=== PATIENT | male | born 1990 | race Caucasian/White ===

== ENCOUNTER → 2018-11-18 | Outpatient (CLI) | payer OTHER ==
--- NOTE | 2018-11-18 14:15 | XR ---
Cervical spine HISTORY: Trauma and pain 5 views of the cervical spine There is no evident foraminal encroachment. Cervical vertebral bodies show preserved height, alignmen t, and bone mineralization. Disc spaces and prevertebral soft tissues are normal. IMPRESSION: No acute fracture or subluxation.
== END | disposition home or self-care (01) ==
LOC: RADXRMAIN 09:19
PROVIDERS: ATTEND Nurse Practitioner Adult Health
DX: M54.2 Cervicalgia (principal)
CPT/HCPCS: 72050

== ENCOUNTER 2021-09-08 20:07 | Observation (INO) | payer OTHER ==
[2021-09-08] MEDS ORDERED: SODIUM CHLORIDE 0.9% 1,000 ML IV STA (20:12)
--- NOTE | 2021-09-08 20:33 | ED ---
General Adult HPI - General Chief complaint: Syncope Stated complaint: Syncope Time Seen by Provider: 09/08/21 20:12 Source: patient, EMS, RN notes reviewed, old records reviewed Mode of arrival: EMS - History of Present Illness Initial comments: 31-year-old male presents with paramedics with 3 episodes of loss consciousness, syncopal episodes. Patient was noted by paramedics to have bradycardic episode with heart rate of 15. This did result in a witnessed syncopal episode. He had 2 prior episodes to this event. He denies any current heart conditions or medications. Denies drugs or alcohol. He states he's had a diarrheal illness for the past 24 hours. He did have one episode of vomiting. The patient also had fallen striking the left side of his head. - Related Data Home Medications Medication Instructions Recorded Confirmed No Known Home Medications 09/08/21 09/08/21 Allergies Allergy/AdvReac Type Severity Reaction Status Date / Time ibuprofen [From Motrin] AdvReac Anaphylaxis Verified 09/08/21 21:32 NSAIDS (Non-Steroidal AdvReac Anaphylaxis Verified 09/08/21 21:32 Anti-Inflamma Review of Systems ROS Statement: Those systems with pertinent positive or pertinent negative responses have been documented in the HPI. ROS Other: All systems not noted in ROS Statement are negative. Past Medical History Past Medical History: Asthma History of Any Multi-Drug Resistant Organisms: None Reported Smoking Status: Never smoker Past Alcohol Use History: None Reported Past Drug Use History: None Reported General Exam General appearance: alert, in no apparent distress Head exam: Present: other (Left temporal abrasion) ENT exam: Present: normal exam Neck exam: Present: normal inspection. Absent: tenderness, meningismus Respiratory exam: Present: normal lung sounds bilaterally. Absent: respiratory distress, wheezes Cardiovascular Exam: Present: regular rate, normal rhythm GI/Abdominal exam: Present: soft. Absent: distended, tenderness Extremities exam: Present: normal inspection, normal capillary refill. Absent: pedal edema, joint swelling Neurological exam: Present: alert, oriented X3, CN II-XII intact. Absent: motor sensory deficit Psychiatric exam: Present: normal affect, normal mood Skin exam: Present: warm, dry, intact. Absent: cyanosis, diaphoretic Course Vital Signs 09/08/21 20:08 Temperature 98.8 F Pulse Rate 82 Respiratory 18 Rate Blood Pressure 132/87 O2 Sat by Pulse 98 Oximetry EKG Findings - EKG Comments: EKG Findings:: Initial EKG, 2013, sinus rhythm with a rate of 91, OR interval 167, QRS duration 102, QTC 43, no ST segment elevation. Repeat EKG at 2023, sinus bradycardia with sinus arrhythmia, rate of [address] segment elevation, OR interval 155, QRS duration 101, QTC 390. Medical Decision Making - Medical Decision Making 31-year-old male who resents with syncopal episode and bradycardia. Paramedics had visualized the patient with a bradycardic episode to 15. He was hypotensive and diaphoretic. He had 3 total episodes of syncope prior to arrival. He is sinus rhythm. He has an episode of bradycardia this is sinus bradycardia in the 50s he becomes minimally symptomatic at that time. Laboratory testing is essentially unremarkable. I performed a head CT for head trauma and this was negative. Chest x-ray negative for acute cardiopulmonary disease. X-ray of the right hand negative for traumatic injury. Patient will be observed on telemetry with cardiology on consultation. For syncopal episode with profound bradycardia. He is admitted to Dr. Kimble who is able to evaluate the patient emergency department. - Lab Data Result diagrams: 09/08/21 20:30 09/08/21 20:30 Lab Results 09/08/21 09/08/21 09/08/21 Range/Units 20:30 20:30 20:30 WBC 11.3 H (3.8-10.6) k/uL RBC 5.53 (4.30-5.90) m/uL Hgb 17.0 (13.0-17.5) gm/dL Hct 50.7 (39.0-53.0) % MCV 91.6 (80.0-100.0) fL MCH 30.7 (25.0-35.0) pg MCHC 33.5 (31.0-37.0) g/dL RDW 12.8 (11.5-15.5) % Plt Count 220 (150-450) k/uL MPV 8.0 Neutrophils % 90 % Lymphocytes % 5 % Monocytes % 4 % Eosinophils % 1 % Basophils % 0 % Neutrophils # 10.1 H (1.3-7.7) k/uL Lymphocytes # 0.5 L (1.0-4.8) k/uL Monocytes # 0.4 (0-1.0) k/uL Eosinophils # 0.1 (0-0.7) k/uL Basophils # 0.0 (0-0.2) k/uL PT 10.9 (9.0-12.0) sec INR 1.0 (<1.2) APTT 24.0 (22.0-30.0) sec Sodium 137 (137-145) mmol/L Potassium 4.4 (3.5-5.1) mmol/L Chloride 103 (98-107) mmol/L Carbon Dioxide 27 (22-30) mmol/L Anion Gap 7 mmol/L BUN 8 L (9-20) mg/dL Creatinine 1.06 (0.66-1.25) mg/dL Est GFR (CKD-EPI)AfAm >90 (>60 ml/min/1.73 sqM) Est GFR (CKD-EPI)NonAf >90 (>60 ml/min/1.73 sqM) Glucose 119 H (74-99) mg/dL Calcium 8.6 (8.4-10.2) mg/dL Magnesium 1.9 (1.6-2.3) mg/dL Total Bilirubin 1.4 H (0.2-1.3) mg/dL AST 28 (17-59) U/L ALT 35 (4-49) U/L Alkaline Phosphatase 116 (38-126) U/L Troponin I (0.000-0.034) ng/mL Total Protein 7.4 (6.3-8.2) g/dL Albumin 4.3 (3.5-5.0) g/dL 09/08/21 Range/Units 20:30 WBC (3.8-10.6) k/uL RBC (4.30-5.90) m/uL Hgb (13.0-17.5) gm/dL Hct (39.0-53.0) % MCV (80.0-100.0) fL MCH (25.0-35.0) pg MCHC (31.0-37.0) g/dL RDW (11.5-15.5) % Plt Count (150-450) k/uL MPV Neutrophils % % Lymphocytes % % Monocytes % % Eosinophils % % Basophils % % Neutrophils # (1.3-7.7) k/uL Lymphocytes # (1.0-4.8) k/uL Monocytes # (0-1.0) k/uL Eosinophils # (0-0.7) k/uL Basophils # (0-0.2) k/uL PT (9.0-12.0) sec INR (<1.2) APTT (22.0-30.0) sec Sodium (137-145) mmol/L Potassium (3.5-5.1) mmol/L Chloride (98-107) mmol/L Carbon Dioxide (22-30) mmol/L Anion Gap mmol/L BUN (9-20) mg/dL Creatinine (0.66-1.25) mg/dL Est GFR (CKD-EPI)AfAm (>60 ml/min/1.73 sqM) Est GFR (CKD-EPI)NonAf (>60 ml/min/1.73 sqM) Glucose (74-99) mg/dL Calcium (8.4-10.2) mg/dL Magnesium (1.6-2.3) mg/dL Total Bilirubin (0.2-1.3) mg/dL AST (17-59) U/L ALT (4-49) U/L Alkaline Phosphatase (38-126) U/L Troponin I <0.012 (0.000-0.034) ng/mL Total Protein (6.3-8.2) g/dL Albumin (3.5-5.0) g/dL Disposition Clinical Impression: Syncope, Bradycardia Disposition: ADMITTED IP TO THIS [facility] Condition: Stable Is patient prescribed a controlled substance at d/c from ED?: No Decision to Admit Reason: Admit from EC Decision Date: 09/08/21 Decision Time: 21:34
[2021-09-08 20:44] LABS: Basophils % (A) 0 %; Eosinophils # (A) 0.1 k/uL (0-0.7); Eosinophils % (A) 1 %; HCT 50.7 % (39.0-53.0); Lymphocytes # (A) 0.5 k/uL (1.0-4.8); Lymphocytes % (A) 5 %; MCH 30.7 pg (25.0-35.0); MCHC 33.5 g/dL (31.0-37.0); MCV 91.6 fL (80.0-100.0); Monocytes # (A) 0.4 k/uL (0-1.0); Monocytes % (A) 4 %; Neutrophils # (A) 10.1 k/uL (1.3-7.7); Neutrophils % (A) 90 %; Platelet Count 220 k/uL (150-450); RBC 5.53 m/uL (4.30-5.90); RDW 12.8 % (11.5-15.5); WBC 11.3 k/uL (3.8-10.6)
[2021-09-08 20:57] LABS: Prothrombin Time 10.9 sec (9.0-12.0)
[2021-09-08 20:58] LABS: ALT 35 U/L (4-49); AST 28 U/L (17-59); African American GFR (CKD) >90 (>60 ml/min/1.73 sqM); Albumin 4.3 g/dL (3.5-5.0); Alkaline Phosphatase 116 U/L (38-126); Anion Gap 7 mmol/L; Blood Urea Nitrogen 8 mg/dL (9-20); Calcium 8.6 mg/dL (8.4-10.2); Carbon Dioxide 27 mmol/L (22-30); Chloride 103 mmol/L (98-107); Glucose 119 mg/dL (74-99); Magnesium 1.9 mg/dL (1.6-2.3); Non-African American GFR(CKD) >90 (>60 ml/min/1.73 sqM); Potassium 4.4 mmol/L (3.5-5.1); Sodium 137 mmol/L (137-145); Total Bilirubin 1.4 mg/dL (0.2-1.3); Total Protein 7.4 g/dL (6.3-8.2)
--- NOTE | 2021-09-08 21:06 | XR ---
EXAMINATION TYPE: XR hand complete RT DATE OF EXAM: 09/08/2021 COMPARISON: NONE HISTORY: Right hand pain TECHNIQUE: 3 views FINDINGS: Metacarpals are intact. Fingers are intact. I see no fracture nor dislocation. There are no erosions. Carpal bones are intact. IMPRESSION: Negative right hand exam.
--- NOTE | 2021-09-08 21:07 | XR ---
EXAMINATION TYPE: XR chest 2V DATE OF EXAM: 09/08/2021 COMPARISON: NONE HISTORY: Syncope TECHNIQUE: 2 views FINDINGS: Heart and mediastinum are normal. Lungs are clear. Diaphragm is normal. Bony thorax appears normal. IMPRESSION: Normal chest.
[2021-09-08] MEDS ORDERED: NALOXONE 0.4 MG/ML 1 ML VIAL IV PRN (21:20)
--- NOTE | 2021-09-08 21:27 | CT ---
EXAMINATION TYPE: CT brain wo con DATE OF EXAM: 09/08/2021 COMPARISON: None HISTORY: syncope, vomiting CT DLP: 1098.4 mGycm Automated exposure control for dose reduction was used. Ventricles of normal size. There is no mass effect or midline shift. There is no evidence of intracra nial hemorrhage. There is no evidence of cerebral edema. Calvarium is intact. The skull base is intac t. IMPRESSION: Negative unenhanced head CT scan.
[2021-09-08] MEDS: HEPARIN SODIUM,PORCINE/PF 5,000 UNIT/0.5 ML SYRINGE SQ SCH (23:04)
[2021-09-08] MEDS: SODIUM CHLORIDE 0.9% 1,000 ML IV SCH (23:54)
--- NOTE | 2021-09-09 03:21 | P.HPIM ---
History of Present Illness H&P Date: 09/08/21 Chief Complaint: syncope 31 year old male with no significant past medical history patient reports GI symptoms over past few days, he admits to sick contact with similar symptoms in his brother and a coworker. he denies any fever or chills, but reports nausea and occasional vomiting, and diarrhea for the past couple days , no GI bleeding no brit, but occasional spots of blood on the toilet paper. he denies any abd pain, but had poor PO intake. today he went to the [facility] and did not feel well, while there he suddenly felt dizzy hot, and vision started tunneling next thing he knows waking up on the floor, bumped his face, denies any associated chest pain , palpitations or SOB. shortly after that he had another episode which was witnessed by his step dad, who was able to catch him and avoid injuries this time. no report of seizure like activity , EMS notified , and found him bradycardic with recurrent episodes en route. in the ED he again had short episode of bradycardia, otherwise he was doing well. blood work over all unremarkable no history of syncope, not taking any medications, denies any over the counter meds, he is trying to lose weight by calorie counting, but at least eating 2400 calories daily . he admits to depressed mood. no history of falls otherwise, and he is independent at baseline patient vaccinated against covid denies any URI symptoms . patient reports remote history of episode of what seems like a vasovagal episode , when he had out of the ordinary physical exertion at that time. however, this time he was resting doing nothing patient denies any recreational drugs Review of Systems Pertinent positives as noted in HPI. All other systems were reviewed and are negative Past Medical History Past Medical History: Asthma History of Any Multi-Drug Resistant Organisms: None Reported Smoking Status: Never smoker Past Alcohol Use History: None Reported Past Drug Use History: None Reported - Past Family History Mother Additional Family Medical History / Comment(s): Mom in june 2019 when covid first started. Pt states that they thought it may have been cardiac related but pt thinks it could have been covid. States that mom had covid symtpoms but was not tested Father Family Medical History: Myocardial Infarction ([place]) Additional Family Medical History / Comment(s): Father 03-31-15 from heart attack Brother(s) Additional Family Medical History / Comment(s): Depression Medications and Allergies Home Medications Medication Instructions Recorded Confirmed Type No Known Home Medications 09/08/21 09/08/21 History Allergies Allergy/AdvReac Type Severity Reaction Status Date / Time ibuprofen [From Motrin] AdvReac Anaphylaxis Verified 09/08/21 21:32 NSAIDS (Non-Steroidal AdvReac Anaphylaxis Verified 09/08/21 21:32 Anti-Inflamma Physical Exam Vitals: Vital Signs Temp Pulse Resp BP Pulse Ox 09/08/21 21:37 87 18 134/98 99 09/08/21 20:08 98.8 F 82 18 132/87 98 Intake and Output 09/08/21 09/08/21 09/08/21 06:59 14:59 22:59 Other: Weight 136.078 kg Constitutional: No acute distress, conversant, pleasant Eyes: Anicteric sclerae, moist conjunctiva, Pupils equal round reactive to light ENMT: NC/ abrasion over the left side of the face, and under the chin. no active bleeding Oropharynx clear, no erythema, or exudates Neck: Supple, no masses, or JVD No carotid bruits No thyromegaly Lungs: Clear to auscultation Clear to percussion Normal respiratory effort, no accessory muscle use Cardiovascular: Heart regular in rate and rhythm, No murmurs, gallops, or rubs No peripheral edema Abdominal: Soft Nontender, no guarding, rebound or rigidity Abdomen moving with respiration Normoactive bowel sounds No hepatomegaly, No splenomegaly No palpable mass No abdominal wall hernia noted Skin: Normal temperature, tone, texture, turgor No induration No subcutaneous nodules No rash, lesions No ulcers Extremities: No digital cyanosis No clubbing Pedal pulses intact and symmetrical Radial pulses intact and symmetrical No calf tenderness Psychiatric: Alert and oriented to person, place and time Appropriate affect fair judgement Neuro Muscles Strength 5/5 in all 4 extremities Sensation to light touch grossly present throughout Cranial nerves II-XII grossly intact Lymphatics: no palpable cervical or supraclavicular , or inguinal lymph nodes Results CBC & Chem 7: 09/08/21 20:30 09/08/21 20:30 Labs: Abnormal Lab Results - Last 24 Hours (Table) 09/08/21 09/08/21 Range/Units 20:30 20:30 WBC 11.3 H (3.8-10.6) k/uL Neutrophils # 10.1 H (1.3-7.7) k/uL Lymphocytes # 0.5 L (1.0-4.8) k/uL BUN 8 L (9-20) mg/dL Glucose 119 H (74-99) mg/dL Total Bilirubin 1.4 H (0.2-1.3) mg/dL Assessment and Plan Assessment: syncope, possibly vasovagal episode. however, patient found to be significantly bradycardic acute gastroenteritis, with decrease PO intake cardiology consult telemetry monitor trend trops check echo check TSH, urine drug screen check ECHOcardiogram check influenza and covid IVF hydration 1 L bolus normal saline ,then continue with 150 cc per hour electrolytes unremarkable fall precautions full code DVT PPX heparin sc tid anticipated length of stay < 2 midnights
[2021-09-09] MEDS: SODIUM CHLORIDE 0.9% 1,000 ML IV SCH ×2 (05:50→12:38)
[2021-09-09 06:40] LABS: Appearance,Urine Cloudy (Clear); Bacteria,Urine Occasional /hpf; Bilirubin,Urine Negative (Negative); Blood,Urine Small (Negative); Color,Urine Yellow; Glucose,Urine (UA) Negative (Negative); Hyaline Casts,Urine 12 /lpf (0-2); Ketones,Urine Negative (Negative); Leukocyte Esterase,Urine Large (Negative); Mucus,Urine Many /hpf; Nitrite,Urine Negative (Negative); PH, Urine 5.5 (5.0-8.0); Protein,Urine 1+ (Negative); RBC,Urine 23 /hpf (0-5); Specific Gravity,Urine 1.024 (1.001-1.035); Squamous Epithelial Cell,Urine 4 /hpf (0-4); Urobilinogen,Urine <2.0 mg/dL (<2.0); WBC,Urine >182 /hpf (0-5)
[2021-09-09] MEDS: HEPARIN SODIUM,PORCINE/PF 5,000 UNIT/0.5 ML SYRINGE SQ SCH ×2 (08:11→16:09)
[2021-09-09 08:58] LABS: Chol/HDL Ratio 5.62 Ratio; LDL Cholesterol,Calculated 110.1 mg/dL (0.0-131.0)
[2021-09-09 10:08] LABS: Urine Alcohol Negative (Negative); Urine Barbiturate Negative (Negative); Urine Cocaine Negative (Negative); Urine Methadone Negative (Negative); Urine Opiates Negative (Negative); Urine Phencyclidine Negative (Negative)
--- NOTE | 2021-09-09 14:24 | P.PN ---
Subjective Progress Note Date: 09/09/21 Principal diagnosis: syncope Patient is a 31 yo CM with hx of arthritis, anxiety, and obesity who presented after syncopal episode X 2. In the ER he underwent an extensive evaluation. His initial vital signs within normal limits. Initial laboratory analysis showed a white blood cell count of 11.3 but was otherwise unremarkable. COVID- [address] head demonstrated no acute process. Chest x-ray showed no acute process. X-ray right hand showed no acute process. He had been having significant nausea and profound diarrhea. He did have a syncopal episode again in the emergency department. The patient was subsequently admitted. Patient seen and examined at bedside. He reports that he has not had any dysuria or urinary frequency, but has felt rather odd the last couple of days. He denies any fevers at home. He states he has had 2 other urinary tract infections as an adult. He denies any high-risk sexual behaviors. He states this is his second episode of syncopal events. The first was associated with exertion and dehydration. He also had one event as a child associated with heat stroke. General: Nontoxic, no distress, appears at stated age, obese Derm: warm, dry Head: atraumatic, normocephalic, symmetric Eyes: EOMI, no lid lag, anicteric sclera Mouth: no lip lesion, mucus membranes moist Cardiovascular: S1S2 reg, no murmur, positive posterior tibial pulse bilateral, Lungs: CTA bilateral, no rhonchi, no rales , no accessory muscle use Abdominal: soft, nontender to palpation, no guarding, no appreciable organomegaly Ext: no gross muscle atrophy, no edema, no contractures Neuro: CN II-XI grossly intact, no focal neuro deficits Psych: Alert, oriented, appropriate affect Acute gastroenteritis Urinary tract infection -Start on Rocephin, await urine cultures -Check renal ultrasound and postvoid residuals -Completed IV fluids -All nausea and diarrhea has resolved Syncopal event, likely vasovagal -Cardiology recommendations appreciated -Check echocardiogram -Telemetry monitoring -Orthostatic vitals negative Obesity with BMI 43 If an outpatient structured weight loss DVT prophylaxis: Early ambulation Discussed with: patient, nursing Anticipated discharge: in AM Anticipated discharge place: home A total of 35 minutes was spent on the care of this complex patient more than 50% of the time was spent in counseling and care coordination. Objective - Vital Signs Vital signs: Vital Signs Temp 99.9 F H 09/09/21 07:50 Pulse 87 09/09/21 10:58 Resp 16 09/09/21 07:50 BP 113/69 09/09/21 10:58 Pulse Ox 96 09/09/21 10:58 Intake & Output 09/08/21 09/09/21 09/09/21 18:59 06:59 18:59 Weight 136.078 kg Other: Voiding Method Urinal # Voids 1 - Labs CBC & Chem 7: 09/08/21 20:30 09/08/21 20:30 Labs: Abnormal Lab Results - Last 24 Hours (Table) 09/08/21 09/08/21 09/09/21 Range/Units 20:30 20:30 06:20 WBC 11.3 H (3.8-10.6) k/uL Neutrophils # 10.1 H (1.3-7.7) k/uL Lymphocytes # 0.5 L (1.0-4.8) k/uL BUN 8 L (9-20) mg/dL Glucose 119 H (74-99) mg/dL Total Bilirubin 1.4 H (0.2-1.3) mg/dL HDL Cholesterol (40.00-60.00) mg/dL Urine Protein 1+ H (Negative) Urine Blood Small H (Negative) Ur Leukocyte Esterase Large H (Negative) Urine RBC 23 H (0-5) /hpf Urine WBC >182 H (0-5) /hpf Urine WBC Clumps Occasional H (None) /hpf Urine Bacteria Occasional H (None) /hpf Hyaline Casts 12 H (0-2) /lpf Urine Mucus Many H (None) /hpf 09/09/21 Range/Units 06:39 WBC (3.8-10.6) k/uL Neutrophils # (1.3-7.7) k/uL Lymphocytes # (1.0-4.8) k/uL BUN (9-20) mg/dL Glucose (74-99) mg/dL Total Bilirubin (0.2-1.3) mg/dL HDL Cholesterol 29.90 L (40.00-60.00) mg/dL Urine Protein (Negative) Urine Blood (Negative) Ur Leukocyte Esterase (Negative) Urine RBC (0-5) /hpf Urine WBC (0-5) /hpf Urine WBC Clumps (None) /hpf Urine Bacteria (None) /hpf Hyaline Casts (0-2) /lpf Urine Mucus (None) /hpf
--- NOTE | 2021-09-09 14:39 | P.CRDCN ---
History of Present Illness Consult date: 09/09/21 Consult reason: sycope History of present illness: This is Mohinder Finnegan NP, I'm dictating on behalf of Dr. Santos's H&P and A&P The patient was interviewed and examined. HPI: Patient is a pleasant 31-year-old male who initially presented to the hospital with syncope, and bradycardia. According to the emergency department notes, the EMS found the patient unconscious on the floor his bathroom, with a heart rate of 15. Further monitoring of his heart rate continued to demonstrate bradycardia, although he up to the point where he was admitted to the emergency department, where his heart rate had recovered to 50. Patient reports that he had been sick with a GI bug, having at least 4 bouts of watery diarrhea the night before. He states that he was feeling nauseous, and got up and went to the bathroom to attempt to throw up, and he passed out. Patient was subsequently admitted to the floor for further evaluation of the syncopal e pisode. Patient has a past medical history that includes asthma. He has no past surgical history this time. Patient reports that he is a never smoker, and denies alcohol or illicit substance use. Patient was interviewed and examined while lying in the bed. Patient currently reports no chest pain, shortness of breath, heart palpitations, dizziness, syncope, or blurry vision. He reports since being admitted to the hospital he's felt much better. He also reports no further episodes of diarrhea or nausea. ROS: [No fever, chills, or rigors] [no cough, phlegm, or expectoration] [no nausea, vomiting, or diarrhea] [no hematuria, dysuria] [no musculoskelatal complaints] [no strokes or seizures] [no skin lesions] EXAMINATION: GENERAL: Well-appearing, well-nourished and in no acute distress. NECK: Supple without JVD or thyromegaly. LUNGS: Breath sounds clear to auscultation bilaterally. Respiration equal and unlabored. No wheezes, rales or rhonchi. HEART: Regular rate and rhythm without murmurs, rubs or gallops. S1 and S2 heard. EXTREMITIES: Normal range of motion, no edema. No clubbing or cyanosis. Peripheral pulses intact and strong. REVIEW OF LABS, ECG & MEDICAL DATA: LABS: White count 11.3, hemoglobin 17.0, platelets 220, sodium 137, potassium 4.4, B1 8, creatinine 1.06, hemoglobin A1c 5.3, magnesium 1.9, troponin less than 0.012, triglycerides 140, cholesterol 168, LDL 110, HDL 29.9, TSH 0.542 EKG: Initial shows sinus bradycardia. Currently patient is in normal sinus rhythm. IMAGING: Chest x-ray dated 09/08/2021 shows a normal chest; CT of the brain without contrast dated 09/08/2021 shows negative unenhanced head computed tomography scan. VITALS: Temp 99.9, pulse 75, respirations 16, blood pressure 153/71, O2 saturation 95% on room air. Orthostatic vital signs: Supine-113/69, pulse 83; sitting-142/72, pulse 95; standing-121/85, pulse 97 IMPRESSION/PLAN: 1. Syncope-likely due to vasovagal response, exacerbated by fluid depletion secondary to diarrhea. Patient should be mindful that he has this issue. He should make sure that he is adequately hydrated. He should be mindful of hot, enclosed spaces. From a cardiology standpoint the patient can be discharged home. Patient should follow-up with cardiology in 4 weeks. Thank you for the consult and allowing us to participate in the care of this patient. Past Medical History Past Medical History: Asthma Additional Past Medical History / Comment(s): Arthritis in bilateral knees, Past syncopal epispde(s) in October 2017 and February 2019 from physical exertion History of Any Multi-Drug Resistant Organisms: None Reported Additional Past Surgical History / Comment(s): Ingrown toenail sx in 2006, wisdom teeth removed in 2018 Additional Past Anesthesia/Blood Transfusion Reaction / Comment(s): After wisdom teeth removal, pt vomitted but other than that no other reactions noted. Smoking Status: Never smoker Past Alcohol Use History: None Reported Past Drug Use History: None Reported - Past Family History Mother Additional Family Medical History / Comment(s): Mom in june 2019 when covid first started. Pt states that they thought it may have been cardiac related but pt thinks it could have been covid. States that mom had covid symtpoms but was not tested Father Family Medical History: Myocardial Infarction ([place]) Additional Family Medical History / Comment(s): Father 09-25-15 from heart attack Brother(s) Additional Family Medical History / Comment(s): Depression Medications and Allergies Home Medications Medication Instructions Recorded Confirmed Type No Known Home Medications 09/08/21 09/08/21 History Allergies Allergy/AdvReac Type Severity Reaction Status Date / Time ibuprofen [From Motrin] AdvReac Anaphylaxis Verified 09/08/21 21:32 NSAIDS (Non-Steroidal AdvReac Anaphylaxis Verified 09/08/21 21:32 Anti-Inflamma Physical Exam Vitals: Vital Signs Temp Pulse Pulse Pulse Pulse Pulse Resp 09/09/21 10:58 90 98 87 09/09/21 07:50 99.9 F H 75 16 09/09/21 03:32 100.6 F H 91 16 09/08/21 23:01 87 18 09/08/21 22:15 99.1 F 82 17 09/08/21 21:37 87 18 09/08/21 20:08 98.8 F 82 18 BP BP BP BP BP Pulse Ox 09/09/21 10:58 142/72 121/85 113/69 96 09/09/21 07:50 153/71 95 09/09/21 03:32 110/68 97 09/08/21 23:01 09/08/21 22:15 113/76 100 09/08/21 21:37 134/98 99 09/08/21 20:08 132/87 98 Intake and Output 09/08/21 09/09/21 09/09/21 22:59 06:59 14:59 Other: Voiding Method Urinal # Voids 1 Weight 136.078 kg Results 09/08/21 20:30 09/08/21 20:30 Cardiac Enzymes 09/08/21 09/08/21 Range/Units 20:30 20:30 AST 28 (17-59) U/L Troponin I <0.012 (0.000-0.034) ng/mL Coagulation 09/08/21 Range/Units 20:30 PT 10.9 (9.0-12.0) sec APTT 24.0 (22.0-30.0) sec Lipids 09/09/21 Range/Units 06:39 Triglycerides 140.00 (0.00-149.00) mg/dL Cholesterol 168.00 (0.00-200.00) mg/dL HDL Cholesterol 29.90 L (40.00-60.00) mg/dL Cholesterol/HDL Ratio 5.62 Ratio CBC 09/08/21 Range/Units 20:30 WBC 11.3 H (3.8-10.6) k/uL RBC 5.53 (4.30-5.90) m/uL Hgb 17.0 (13.0-17.5) gm/dL Hct 50.7 (39.0-53.0) % Plt Count 220 (150-450) k/uL Comprehensive Metabolic Panel 09/08/21 Range/Units 20:30 Sodium 137 (137-145) mmol/L Potassium 4.4 (3.5-5.1) mmol/L Chloride 103 (98-107) mmol/L Carbon Dioxide 27 (22-30) mmol/L BUN 8 L (9-20) mg/dL Creatinine 1.06 (0.66-1.25) mg/dL Glucose 119 H (74-99) mg/dL Calcium 8.6 (8.4-10.2) mg/dL AST 28 (17-59) U/L ALT 35 (4-49) U/L Alkaline Phosphatase 116 (38-126) U/L Total Protein 7.4 (6.3-8.2) g/dL Albumin 4.3 (3.5-5.0) g/dL Current Medications Generic Name Dose Route Start Last Admin Trade Name Freq PRN Reason Stop Dose Admin Heparin Sodium (Porcine) 5,000 unit 09/09/21 00:00 09/09/21 08:11 Heparin Sodium,Porcine/Pf 5,000 Unit/0.5 Ml Syringe SQ 5,000 unit Q8HR GORDO Administration Sodium Chloride 1,000 mls @ 150 mls/hr 09/08/21 23:45 09/09/21 05:50 Saline 0.9% IV 150 mls/hr .[id number] GORDO Administration Ceftriaxone Sodium 1 gm/ 50 mls @ 100 mls/hr 09/09/21 09:00 09/09/21 08:11 Sodium Chloride IVPB 100 mls/hr Q24HR GORDO Administration Protocol Naloxone HCl 0.2 mg 09/08/21 21:20 Naloxone 0.4 Mg/Ml 1 Ml Vial IV Q2M PRN Opioid Reversal Intake and Output 09/08/21 09/09/21 09/09/21 22:59 06:59 14:59 Other: Voiding Method Urinal # Voids 1 Weight 136.078 kg 09/08/21 20:30 09/08/21 20:30
--- NOTE | 2021-09-09 16:32 | US ---
EXAMINATION TYPE: US renals and bladder DATE OF EXAM: 09/09/2021 COMPARISON: NONE CLINICAL HISTORY: urinary retention . patient denies urinary retention EXAM MEASUREMENTS: Right Kidney: 10.2 x 4.3 x 6.0 cm Left Kidney: 10.9 x 4.7 x 5.2 cm Right Kidney: No hydronephrosis or masses seen Left Kidney: No hydronephrosis or masses seen Bladder: distended but patient could not feel it IMPRESSION: No evidence of bladder mass. No evidence of renal mass or obstruction.
[2021-09-10] MEDS: HEPARIN SODIUM,PORCINE/PF 5,000 UNIT/0.5 ML SYRINGE SQ SCH ×2 (00:43→08:38)
[2021-09-10 06:58] LABS: HCT 45.3 % (39.0-53.0); HGB 14.9 gm/dL (13.0-17.5); MCH 30.4 pg (25.0-35.0); MCV 92.1 fL (80.0-100.0); Mean Platelet Volume 8.1; Platelet Count 200 k/uL (150-450); RBC 4.91 m/uL (4.30-5.90); RDW 12.8 % (11.5-15.5); WBC 6.9 k/uL (3.8-10.6)
[2021-09-10 07:42] LABS: African American GFR (CKD) >90 (>60 ml/min/1.73 sqM); Anion Gap 4 mmol/L; Blood Urea Nitrogen 8 mg/dL (9-20); Calcium 8.4 mg/dL (8.4-10.2); Carbon Dioxide 26 mmol/L (22-30); Chloride 106 mmol/L (98-107); Glucose 79 mg/dL (74-99); Non-African American GFR(CKD) >90 (>60 ml/min/1.73 sqM); Potassium 3.9 mmol/L (3.5-5.1); Sodium 136 mmol/L (137-145)
[2021-09-10 07:56] VITALS: BP 111/79; PULSE 62; RESP 16; TEMP 98.2
--- NOTE | 2021-09-10 10:00 | ECHOF ---
Referral Reason:SYNCOPE, SAEID MEASUREMENTS -------- HEIGHT: 177.8 cm WEIGHT: 136.1 kg BP: 127/79 RVIDd: 3.7 cm (< 3.3) IVSd: 1.4 cm (0.6 - 1.1) LVIDd: 5.1 cm (3.9 - 5.3) LVPWd: 1.5 cm (0.6 - 1.1) IVSs: 2.0 cm LVIDs: 3.5 cm LVPWs: 2.1 cm LAESV Index (A-L): 21.55 ml/m Ao Diam: 3.2 cm (2.0 - 3.7) AV Cusp: 2.2 cm (1.5 - 2.6) LA Diam: 3.8 cm (2.7 - 3.8) MV EXCURSION: 15.892 mm (> 18.000) MV EF SLOPE: 79 mm/s (70 - 150) EPSS: 1.2 cm MV E Blade: 1.22 m/s MV DecT: 206 ms MV A Blade: 0.66 m/s MV E/A Ratio: 1.84 RAP: 5.00 mmHg RVSP: 14.14 mmHg FINDINGS -------- Sinus rhythm. This was a technically difficult study with suboptimal apical views. The left ventricular size is normal. There is moderate concentric left ventricular hypertrophy. O verall left ventricular systolic function is normal with, an EF between 55 - 60 %. The right ventricle is mildly enlarged. Normal LA size by volume 22+/-6 ml/m2. The right atrium was not well visualized. 5.0mg of Lumason was utilized for enhancement of images Interatrial and interventricular septum intact. The aortic valve is trileaflet and appears structurally normal. There is no evidence of aortic regu rgitation. There is no evidence of aortic stenosis. No mitral regurgitation. Mild tricuspid regurgitation present. There is no evidence of pulmonary hypertension. The right v entricular systolic pressure, as measured by Doppler, is 14.14mmHg. There is no pulmonic regurgitation present. The aortic root size is normal. IVC Not well visulized. Echo free space represents a pericardial fat pad. There is no pericardial effusion. CONCLUSIONS -------- 1. The left ventricular size is normal. 2. There is moderate concentric left ventricular hypertrophy. 3. Overall left ventricular systolic function is normal with, an EF between 55 - 60 %. 4. The right ventricle is mildly enlarged. 5. Mild tricuspid regurgitation present. COMMUNITY EDUCATOR: Evangelina Ramirez RDCS
[2021-09-10 11:18] VITALS: BMI 43.0
--- NOTE | 2021-09-10 13:53 | P.DS ---
<Mike Moore - Last Filed: 09/10/21 13:54> Providers Expected date of discharge: 09/10/21 Hospital Course: Discharge Diagnosis: Acute gastroenteritis, resolved Urinary tract infection continue Keflex 500 mg every 8 hours 5 days to complete 7 day course of antibiotics. Syncopal event, likely vasovagal Bradycardia, discharged home with a 30 day event monitor Obesity with BMI of 43, may consider structured outpatient weight loss program. Hospital Course: Patient is a very pleasant 31-year-old male with a past medical history of arthritis, anxiety, and obesity. He presented to the emergency department after reports nausea, diarrhea and syncopal episode 2 events. Patient reports he's been having significant diarrhea over the past couple days and began to feel very nauseous stent up and had a syncopal episode. Patient reports this happened twice and both episodes were exactly the same beginning with significant nausea and feeling as though he had to go to the bathroom and having a syncopal episode upon standing. In the emergency department patient underwent extensive evaluation. Vital signs trended and orthostatic vital signs monitored and were unremarkable. CT head completed negative for acute intercranial process. Chest x-ray negative for acute cardiopulmonary process. X-ray right hand negative for fracture or dislocation showing no acute process. EKG showing sinus rhythm at 91 bpm with no noted T-wave or ST abnormalities. Repeat EKG showing sinus bradycardia at 53 bpm. CBC and CMP obtained showing mild leukocytosis with WBC count of 11.3 and slightly elevated bilirubin at 1.4. Covid PCR, influenza A, & influenza B PCR negative. Urine drug screen negative. Urinalysis was positive for infection and patient reported to previous UTIs as an adult but denied any high risk sexual behaviors or risks of STI's. A renal ultrasound was completed showing no evidence of bladder mass or obstruction, negative for hydronephrosis and negative for acute findings. Natividad ent was started on IV antibiotic Rocephin. An echocardiogram was completed revealing normal EF between 55 and 60% with mild tricuspid regurgitation. Patient did have reported episodes of asymptomatic bradycardia throughout admission. He was seen and evaluated by cardiology recommended following up outpatient in 4 weeks. Patient being sent home with a 30 day event monitor and to follow up with Dr. Santos, road contractor in 4 weeks. Physical examination: Patient seen and examined at bedside. Reports that he is feeling well this morning and denies having any complaints including headache, lightheadedness, dizziness, chest pain, palpitations, shortness of breath, or experiencing any numbness/tingling/weakness in his extremities. Patient reports all nausea and diarrhea have resolved. RN reports patient has had a few episodes of asymptomatic bradycardia and which heart rate dipped down into 30s. Called and spoke with cardiology, [employer]SEM[employer] SUPERVISOR and order placed for 30 day event monitor. Vital signs reviewed and stable. General: Nontoxic, no distress and appears stated age. Derm: Skin warm and dry, normal coloration for ethnicity. Abrasion to left temporal area and beneath chin. Head: Atraumatic, normocephalic and symmetric. Eyes: EOMs intact, no lid lag, and anicteric sclera Mouth: no lip lesions, mucus membranes moist Cardiovascular: regular rate and rhythm with normal S1S2, no murmur, positive posterior tibial pulses bilaterally, and cap refill < 2 seconds. Lungs: Respirations even, regular, and unlabored on room air. Lungs CTA b ilaterally, no rhonchi, no rales, no wheezing, and no accessory muscle usage. Abdominal: soft, nontender to palpation, no guarding, no appreciable organomegaly Ext: ROM intact. No gross muscle atrophy, no edema, no contractures Neuro: Speech clear, face symmetrical and CN II-XII grossly intact with no noted focal neuro deficits Psych: Alert and oriented to person, place, time, and situation. Appropriate and pleasant affect. A total of 45 minutes of time were spent preparing this complex discharge summary. Patient Condition at Discharge: Stable Plan - Discharge Summary Discharge Rx Participant: No New Discharge Prescriptions: New Cephalexin [Keflex] 500 mg PO Q8HR 5 Days #15 cap Discharge Medication List Cephalexin [Keflex] 500 mg PO Q8HR 5 Days #15 cap 09/10/21 [Rx] Follow up Appointment(s)/Referral(s): Aj Card MD [STAFF PHYSICIAN] - 4 Weeks ([facility] will call the patient to schedule appointment.) Richard Gonzales [Primary Care Provider] - 1-2 days Patient Instructions/Handouts: Bradycardia (DC), Holter Monitor (GEN) Activity/Diet/Wound Care/Special Instructions: Activity: As tolerated. Take breaks as needed. Avoid hot enclosed spaces. Rise slowly. Diet: Please ensure adequate hydration. Heart healthy and carb consistent diet. Avoid salts, or foods with hidden salts such as canned or boxed foods and frozen dinners. Extra salt makes your heart work harder and traps the fluid in your body for longer. Special Instructions: Take all of your medications as directed and remember to keep all of your doctor's appointments and follow-up as needed. Please make sure to take antibiotics for treatment of your UTI exactly as prescribed and complete entire course. You are being discharged home with an event monitor to monitor heart rate and rhythm, please wear at all times. You will need to follow up with Dr. Santos, road contractor in 4 weeks. Thank you for allowing us to participate in your care, it was truly a pleasure having you for our patient!!! Discharge Disposition: HOME SELF-CARE <Shantal Hernandez - Last Filed: 09/10/21 17:15> Providers Date of admission: 09/08/21 21:20 Attending physician: Desire Dinero MD Consults: 09/08/21 21:21 Consult Physician Routine Consulting Provider: Vinicius Santos Consult Reason/Comments: syncope, bradycardia Do you want consulting provider notified?: Yes Primary care physician: [facility] Course: I reviewed the documentation as provided by the KASHMIR above, who is the original author of this note. I agree with the documented assessment and plan, with the following changes: None
== END 2021-09-10 15:48 | disposition home or self-care (01) ==
LOC: EC 20:07 → 6NMEDSUR 21:20
PROVIDERS: ADMIT Internal Medicine; ATTEND Internal Medicine
DX: K52.9 Noninfective gastroenteritis and colitis, unspecified (principal); N39.0 Urinary tract infection, site not specified; R55 Syncope and collapse; R00.1 Bradycardia, unspecified; E66.9 Obesity, unspecified; Z68.41 Body mass index [BMI] 40.0-44.9, adult; S00.81XA Abrasion of other part of head, initial encounter; Z20.822 Contact with and (suspected) exposure to COVID-19; R17 Unspecified jaundice; F41.9 Anxiety disorder, unspecified; I51.7 Cardiomegaly; E86.0 Dehydration; M17.0 Bilateral primary osteoarthritis of knee; Z88.6 Allergy status to analgesic agent; Z87.440 Personal history of urinary (tract) infections; Z71.3 Dietary counseling and surveillance; J45.909 Unspecified asthma, uncomplicated; Z82.49 Family history of ischemic heart disease and other diseases of the circulatory system; Z81.8 Family history of other mental and behavioral disorders
CPT/HCPCS: 99285; 96372 ×3; 96365; 96361; 36415; 93005; 80061; 80053; 80048; 84443; 83735; 84484; 85025; 85027; 85610; 85730; 81001; 87324; 80306; 87502; 83036; 87635; 73130; 71046; 76770; 70450; G0378 ×3; C8929; J0696 ×2; Q9950; J1644 ×3; 93306

== ENCOUNTER 2024-10-12 10:52 | Emergency (ER) | payer OTHER ==
[2024-10-12] MEDS: PROPARACAINE 0.5% OPHTH DROPS 15 ML BTL LEFT EYE STA (11:08)
[2024-10-12] MEDS: FLUORESCEIN STRIPS 1 MG STRIP LEFT EYE ONE (11:08)
--- NOTE | 2024-10-12 12:00 | ED ---
Eye Problem HPI - General Chief complaint: Eye Problems Stated complaint: left eye injury Time Seen by Provider: 10/12/24 11:03 Source: patient, RN notes reviewed Mode of arrival: ambulatory Limitations: no limitations - History of Present Illness Initial comments: This is a 34-year-old male who presents to the emergency department for a left eye injury. Patient was at work today and when he was cleaning states that he accidentally struck himself in the left eye with the end of the broom stick. He has since had increasing pain and tearing of this area. States that he tried to rinse the eye. This is starting to impact his vision. MD chief complaint: eye pain, eye injury - Related Data Previous Rx's Medication Instructions Recorded Cephalexin [Keflex] 500 mg PO Q8HR 5 Days #15 cap 09/10/21 Omeprazole [PriLOSEC] 40 mg PO DAILY #14 cap 09/08/22 Ondansetron Odt [Zofran Odt] 4 mg PO Q8HR PRN #10 tab 09/08/22 Sulfamethox-Tmp 800-160Mg [Bactrim 1 each PO Q12HR #14 tab 09/08/22 Ds] Allergies Allergy/AdvReac Type Severity Reaction Status Date / Time ibuprofen [From Motrin] AdvReac Anaphylaxis Verified 09/08/22 12:24 NSAIDS (Non-Steroidal AdvReac Anaphylaxis Verified 09/08/22 12:24 Anti-Inflamma Review of Systems ROS Statement: Those systems with pertinent positive or pertinent negative responses have been documented in the HPI. ROS Other: All systems not noted in ROS Statement are negative. Past Medical History Past Medical History: Asthma Additional Past Medical History / Comment(s): Arthritis in bilateral knees, Past syncopal epispde(s) in October 2017 and February 2019 from physical exertion , migraine History of Any Multi-Drug Resistant Organisms: None Reported Additional Past Surgical History / Comment(s): Ingrown toenail sx in 2006, wisdom teeth removed in 2019 Additional Past Anesthesia/Blood Transfusion Reaction / Comment(s): After wisdom teeth removal, pt vomitted but other than that no other reactions noted. Past Psychological History: Anxiety, Depression Smoking Status: Never smoker Past Alcohol Use History: None Reported Past Drug Use History: None Reported - Past Family History Mother Additional Family Medical History / Comment(s): Mom in june 2019 when covid first started. Pt states that they thought it may have been cardiac related but pt thinks it could have been covid. States that mom had covid symtpoms but was not tested Father Family Medical History: Myocardial Infarction ([place]) Additional Family Medical History / Comment(s): Father 03-31-15 from heart attack Brother(s) Additional Family Medical History / Comment(s): Depression General Exam Limitations: no limitations General appearance: alert, in no apparent distress Head exam: Present: atraumatic, normocephalic, normal inspection Eye exam: Present: PERRL, EOMI, other (Left conjunctival injection with large corneal abrasion) Respiratory exam: Present: normal lung sounds bilaterally. Absent: respiratory distress, wheezes, rales, rhonchi, stridor Cardiovascular Exam: Present: regular rate, normal rhythm Neurological exam: Present: alert, oriented X3, CN II-XII intact Psychiatric exam: Present: normal affect, normal mood Skin exam: Present: warm, dry, intact, normal color. Absent: rash Course Vital Signs 10/12/24 10/12/24 10:57 12:50 Temperature 97.9 F 97.8 F Pulse Rate 82 80 Respiratory 20 18 Rate Blood Pressure 182/84 151/86 O2 Sat by Pulse 99 99 Oximetry Medical Decision Making - Medical Decision Making This is a 34-year-old male who presents to the emergency department for a left eye injury. Was pt. sent in by a medical professional or institution? @ -No Did you speak to anyone other than the patient for history? @ -No Did you review nursing and triage notes? @ -Yes, and I agree, it is accurate with regards to the patient's symptoms. Were old charts reviewed? @ -No Differential Diagnosis? @ -Corneal abrasion, globe rupture, retinal detachment, orbital fracture, this is not meant to be an all-inclusive list. EKG interpreted by me (3pts min.)? @ -Not obtained X-rays interpreted by me (1pt min.)? @ -Not obtained CT interpreted by me (1pt min.)? @ -Not obtained U/S interpreted by me (1pt. min.)? @ -Not obtained What testing was considered but not performed? (CT, X-rays, U/S, labs)? Why? @ -None What meds were considered but not given? Why? @ -None Did you discuss the management of the patient with other professionals? @ -Yes, Dr. Medrano, ophthalmology, who advised fluoroquinolone antibiotic drops and follow-up in the office tomorrow. Did you reconcile home meds? @ -No Was smoking cessation discussed for >3mins.? @ -No Was critical care preformed (if so, how long)? @ -No Were there social determinants of health that impacted care today? How? (Homelessness, low income, unemployed, alcoholism, drug addiction, transportation, low edu. Level, literacy, decrease access to med. care, residential, rehab)? @ -No Was there de-escalation of care discussed even if they declined? (Discuss DNR or withdrawal of care, Hospice)? @ -No What co-morbidities impacted this encounter? (DM, HTN, Smoking, COPD, CAD, Cancer, CVA, Hep., AIDS, mental health diagnosis, sleep apnea, morbid obesity)? @ -None Was patient admitted / discharged? @ -Discharged. Fluorescein staining performed demonstrating a very large corneal abrasion. There was no obvious corneal laceration and Mariam sign was not present. Tetanus vaccine is up-to-date. Visual acuity was 20/50 on the left and 20/30 on the right. Given the size of the abrasion, case was discussed with Dr. Medrano, ophthalmology. He advised being sure to use a fluoroquinolone antibiotic and having him follow-up with him in the office tomorrow. Case management made the patient an appointment with Dr. Medrano tomorrow at 3 PM. Ciprofloxacin ophthalmic drops were provided in the emergency department to use 4 times daily. Patient discharged home in stable condition and will follow-up with ophthalmology tomorrow as scheduled. Get discussed with ED attending Dr. Rahman Return precautions reviewed in depth, the patient is instructed to return to the emergency department with any new, worsening, or concerning symptoms. Patient verbalized understanding. Undiagnosed new problem with uncertain prognosis? @ -None Drug Therapy requiring intensive monitoring for toxicity (Heparin, Nitro, Insulin, Cardizem)? @ -None Were any procedures done? @ -None Diagnosis/symptom? @ -Left corneal abrasion Acute, or Chronic, or Acute on Chronic? @ -Acute Uncomplicated (without systemic symptoms) or Complicated (systemic symptoms)? @ -Uncomplicated Side effects of treatment? @ -None Exacerbation, Progression, or Severe Exacerbation] @ -Not applicable Poses a threat to life or bodily function? @ -No Disposition Clinical Impression: Left corneal abrasion Disposition: HOME SELF-CARE Instructions (If sedation given, give patient instructions): Corneal Abrasion (ED) Additional Instructions: Return to the emergency department with any new, worsening, or concerning symptoms. Apply the ciprofloxacin eyedrops provided as 2 drops to the left eye 4 times daily. Follow up with the senior payroll administrator listed below tomorrow at 3 PM. Is patient prescribed a controlled substance at d/c from ED?: No Referrals: Sanju Medrano MD [STAFF PHYSICIAN] - 10/13/24 3:00 pm (Appointment will be with Dr Chin at the same office. Please bring ID Card, you will have new patient paperwork to complete. ) None,Stated [Primary Care Provider] - 1-2 days [facility] [NON-STAFF] - 1-2 days (Clinic for [facility] residents with no insurance or who are under insured.) Forms: Area PCPs Time of Disposition: 12:33
[2024-10-12] MEDS: CIPROFLOXACIN 0.3% OPHTH SOLN 5 ML BTL LEFT EYE STA (12:09)
[2024-10-12 12:52] VITALS: BP 151/86; PULSE 80; RESP 18; TEMP 97.8
== END 2024-10-12 12:52 | disposition home or self-care (01) ==
LOC: EC 10:52
DX: S05.02XA Injury of conjunctiva and corneal abrasion without foreign body, left eye, initial encounter (principal); Z88.6 Allergy status to analgesic agent; W22.8XXA Striking against or struck by other objects, initial encounter; Y99.0 Civilian activity done for income or pay
CPT/HCPCS: 99283